=== PATIENT | female | born 1970 | race Caucasian/White ===

== ENCOUNTER 2019-05-23 09:26 | Emergency (ER) | payer OTHER ==
[~2019-05-23] VITALS: Ht 157.5 cm; Wt 67.5 kg
[2019-05-23 09:36] VITALS: Ht 157.5 cm; Wt 67.5 kg
[2019-05-23] MEDS ORDERED: SOD CHLORIDE 0.9% 1,000 ML IV STA (09:52)
[2019-05-23] MEDS ORDERED: DIPHENHYDRAMINE 50 MG INJ IV STA (09:52)
[2019-05-23] MEDS ORDERED: PROCHLORPERAZINE 10 MG INJ IV STA (09:52)
[2019-05-23] MEDS ORDERED: KETOROLAC 30 MG INJ IV STA (09:52)
--- NOTE | 2019-05-23 10:02 | ERD ---
ER Documentation Chief Complaint Chief Complaint HEADACHE, NO DIZZINESS, PT STATES BLOOD SUGAR ON THE 500s AT HOME HPI This is a 48-year-old female who has a history of diabetes complaining of headache that she had since early this morning. Pain is posterior bilateral radiates to her neck. She tried taking Tylenol but did not help. She has no nausea or vomiting. No dizziness. No changes to her vision. No trauma. No photosensitivity. She was concerned because she took her blood sugar at home and states it was greater than 500. No chest pain palpitations or shortness of breath. ROS All systems reviewed and are negative except as per history of present illness. Medications Home Meds Active Scripts Aspirin/Acetaminophen/Caffeine (Excedrin Migraine Caplet) 1 Each Tablet, 1 EACH PO Q6, #30 TAB Prov:MICAELA BEE PA-C 05/23/19 Allergies Allergies: Coded Allergies: No Known Allergy (Unverified , 05/23/19) PMhx/Soc History of Surgery: Yes (back sx) Anesthesia Reaction: No Hx Cardiac Disorders: Yes (HTN,Hyperlipidemia) Hx Alcohol Use: No Hx Substance Use: No Hx Tobacco Use: No Smoking Status: Never smoker FmHx Family History: diabetes Physical Exam Vitals Vital Signs Date Temp Pulse Resp B/P (MAP) Pulse Ox O2 O2 Flow FiO2 Time Delivery Rate 05/23/19 98.9 102 19 175/78 100 09:36 (110) Physical Exam INITIAL VITAL SIGNS: Reviewed by me GENERAL: Awake, alert and oriented x 4, well appearing, nontoxic, speaking in full sentences. No acute distress HEAD: Atraumatic NECK: Supple. No masses. Full range of motion. No meningismus. No midline tenderness. EYES: EOMI. PERRL. E RESPIRATORY: Clear to auscultation bilaterally. Symmetric chest wall rise. No wheezing or rales. No accessory muscle use. CV: Regular rate and rhythm. No murmurs, rubs, or gallops. ABDOMEN: Soft, non-distended. Nontender. Negative [place]. Negative [place] point tenderness. No CVA tenderness bilaterally. No guarding. No rebound. : Deffered. Neuro: M/S: Alert and oriented Face: EOMI, face and pharynx with normal sensation and function Motor: Normal strength throughout Sensation: Normal sensation throughout Speech: Normal Cerebel: Normal coordination Normal gait Normal finger to nose Result Diagram: 05/23/19 1001 05/23/19 1001 Results 24 hrs Laboratory Tests Test 05/23/19 09:40 05/23/19 09:57 05/23/19 10:01 Bedside Glucose 360 mg/dL Urine Color STRAW Urine Clarity CLEAR Urine pH 5.0 Urine Specific [place] 1.026 Urine Ketones NEGATIVE mg/dL Urine Nitrite NEGATIVE mg/dL Urine Bilirubin NEGATIVE mg/dL Urine Urobilinogen NEGATIVE mg/dL Urine Leukocyte Esterase NEGATIVE Karly/ul Urine Hemoglobin NEGATIVE mg/dL Urine Glucose 3+ mg/dL Urine Total Protein NEGATIVE mg/dl White Blood Count 5.6 10^3/ul Red Blood Count 4.97 10^6/ul Hemoglobin 12.9 g/dl Hematocrit 38.7 % Mean Corpuscular Volume 77.9 fl Mean Corpuscular Hemoglobin 26.0 pg Mean Corpuscular 33.3 g/dl Hemoglobin Concent Red Cell Distribution Width 15.2 % Platelet Count 247 10^3/UL Mean Platelet Volume 10.5 fl Immature Granulocytes % 0.500 % Neutrophils % 54.4 % Lymphocytes % 36.7 % Monocytes % 7.2 % Eosinophils % 0.7 % Basophils % 0.5 % Nucleated Red Blood Cells % 0.0 /100WBC Immature Granulocytes # 0.030 10^3/ul Neutrophils # 3.0 10^3/ul Lymphocytes # 2.0 10^3/ul Monocytes # 0.4 10^3/ul Eosinophils # 0.0 10^3/ul Basophils # 0.0 10^3/ul Nucleated Red Blood Cells # 0.0 10^3/ul Sodium Level 138 mmol/L Potassium Level 4.8 mmol/L Chloride Level 104 mmol/L Carbon Dioxide Level 23 mmol/L Anion Gap 11 Blood Urea Nitrogen 9 mg/dl Creatinine 0.39 mg/dl Est Glomerular Filtrat > 60 mL/min Rate mL/min Glucose Level 370 mg/dl Calcium Level 9.1 mg/dl Total Bilirubin 0.4 mg/dl Direct Bilirubin 0.00 mg/dl Indirect Bilirubin 0.4 mg/dl Aspartate Amino Transf (AST/SGOT) 18 IU/L Alanine 21 IU/L Aminotransferase (ALT/SGPT) Alkaline Phosphatase 61 IU/L Total Protein 7.7 g/dl Albumin 4.1 g/dl Globulin 3.60 g/dl Albumin/Globulin Ratio 1.13 POC Beta HCG, Qualitative NEGATIVE Current Medications Medications Dose Sig/Jenny Start Time Status Last (Trade) Ordered Route PRN Stop Time Admin Dose Reason Admin Sodium 1,000 ml @ Q1H STAT 05/23/19 DC 05/23/19 Chloride 1,000 mls/hr IV 09:52 05/23/19 10:04 10:51 10 mg ONCE STAT 05/23/19 DC 05/23/19 Prochlorperaz IV 09:52 05/23/19 10:08 ine 09:56 (Compazine Inj) Ketorolac 15 mg ONCE STAT 05/23/19 DC 05/23/19 Tromethamine IV 09:52 05/23/19 10:05 (Toradol) 09:56 12.5 mg ONCE STAT 05/23/19 DC 05/23/19 Diphenhydrami IV 09:52 05/23/19 10:06 ne HCl 09:56 (Benadryl) Procedures/MDM This 48-year-old female presents with headache and increased blood sugar. The differential diagnosis includes but is not limited to subdural hematoma, epidural hematoma, intracerebral hemorrhage, occult trauma, CVA, meningitis, encephalitis, hypertension, tension, migraine, cluster, cervical spine disease, and others. Accu-Chek here was 360. She was given IV fluids, Toradol, Benadryl, and Compazine. CT scan ordered. Labs ordered. Patient has hyperglycemia without evidence of DKA. Her CT is negative. She felt much better after treatment. She is discharged with Excedrin. Patient counseled regarding my diagnostic impression and care plan. Prior to discharge all questions answered. Pt agrees with treatment plan and understands strict return precautions. Pt is instructed to follow up with primary care provider within 24- 48 hours. Precautionary instructions provided including instructions to return to the ER if not improving or for any worsening or changing symptoms or concerns. Departure Diagnosis: Primary Impression: Hyperglycemia Additional Impression: Headache Condition: Stable MICAELA BEE PA-C May 23, 2019 10:02
[2019-05-23] MEDS ORDERED: ASPI1TAB31 PO (10:57)
[2019-05-23 11:11] VITALS: BP 127/68; PULSE 86; RESP 18
== END 2019-05-23 11:13 | disposition home or self-care (01) ==
LOC: FTE 09:26
DX: E11.65 Type 2 diabetes mellitus with hyperglycemia (principal); I10 Essential (primary) hypertension; Z79.82 Long term (current) use of aspirin
CPT/HCPCS: 70450; 80053; 81003; 81025; 82962; 85025; J0780; J1200; J1885; J7030; 96361; 96374; 96375